=== PATIENT | male | born 2000 | race American Indian/Alaskan Native ===

== ENCOUNTER 2021-10-10 10:43 | Emergency (ER) | payer SELFPAY ==
[2021-10-10 11:46] VITALS: BP 121/62
--- NOTE | 2021-10-10 11:59 | Emergency Department Report ---
ED Male HPI - General Chief complaint: Urogenital-Male Stated complaint: LOW ABDOMINAL PAIN Time Seen by Provider: 10/10/21 11:50 Source: patient Mode of arrival: Ambulatory Limitations: No Limitations - History of Present Illness Initial comments: 20 y/o male presents to ER c/o 2 month history of penile discharge and girlfirend just informed him she was treated for chlamydia. MD Complaint: penile discharge -: month(s) Location: penis Radiation: none Severity: mild Quality: burning Consistency: constant Improves with: none Worsens with: urination discharge. denies: mass, rash, dysuria, fever, nausea/vomiting - Related Data Previous Rx's Medication Instructions Recorded Last Taken Type Azithromycin [Zithromax TAB] 1,000 mg PO ONCE #2 tablet 10/10/21 Unknown Rx Cefixime [Suprax] 400 mg PO ONCE #1 capsule 10/10/21 Unknown Rx metroNIDAZOLE [Flagyl] 2,000 mg PO ONCE #4 tablet 10/10/21 Unknown Rx Allergies Allergy/AdvReac Type Severity Reaction Status Date / Time No Known Allergies Allergy Unverified 01/14/14 17:34 ED Review of Systems ROS: Stated complaint: LOW ABDOMINAL PAIN Other details as noted in HPI Comment: All other systems reviewed and negative ED Past Medical Hx - Past Medical History Previous Medical History?: No - Surgical History Past Surgical History?: No - Social History Smoking Status: Never Smoker - Medications Home Medications: Home Medications Medication Instructions Recorded Confirmed Last Taken Type Azithromycin [Zithromax TAB] 1,000 mg PO ONCE #2 tablet 10/10/21 Unknown Rx Cefixime [Suprax] 400 mg PO ONCE #1 capsule 10/10/21 Unknown Rx metroNIDAZOLE [Flagyl] 2,000 mg PO ONCE #4 tablet 10/10/21 Unknown Rx ED Physical Exam - General Limitations: No Limitations General appearance: alert, in no apparent distress - Head Head exam: Present: atraumatic, normocephalic - Eye Eye exam: Present: normal appearance - ENT ENT exam: Present: normal exam, normal orophraynx, mucous membranes moist, TM's normal bilaterally - Neck Neck exam: Present: normal inspection, full ROM - Respiratory Respiratory exam: Present: normal lung sounds bilaterally. Absent: respiratory distress, rales, rhonchi - Cardiovascular Cardiovascular Exam: Present: regular rate, normal rhythm. Absent: systolic murmur, diastolic murmur, rubs, gallop - GI/Abdominal GI/Abdominal exam: Present: soft, normal bowel sounds - Rectal Rectal exam: Present: deferred - Extremities Exam Extremities exam: Present: normal inspection, normal capillary refill - Back Exam Back exam: Present: normal inspection. Absent: CVA tenderness (R), CVA tenderness (L) - Neurological Exam Neurological exam: Present: alert, oriented X3, CN II-XII intact, normal gait - Psychiatric Psychiatric exam: Present: normal affect, normal mood - Skin Skin exam: Present: warm, dry, intact, normal color. Absent: rash ED Course Vital Signs 10/10/21 11:43 Temperature 98.4 F Pulse Rate 68 Respiratory 18 Rate Blood Pressure 121/62 [Left] O2 Sat by Pulse 98 Oximetry Critical care attestation.: If time is entered above; I have spent that time in minutes in the direct care o f this critically ill patient, excluding procedure time. ED Disposition Clinical Impression: Possible exposure to STD, Penile discharge, without blood Disposition: HOME / SELF CARE / HOMELESS Is pt being admited?: No Does the pt Need Aspirin: No Condition: Stable Instructions: Gonorrhea Test, Safe Sex, Trichomoniasis, Urethritis, Adult Referrals: [facility] Depart [Outside] - 3-5 Days
[2021-10-10 14:03] LABS: Bilirubin,Urine NEG (Negative); Blood,Urine NEG (Negative); Color,Urine Yellow (Yellow)
[2021-10-10 14:07] LABS: Mucus,Urine 3+ /HPF
== END 2021-10-10 12:20 | disposition home or self-care (01) ==
LOC: ED 10:43
DX: R36.9 Urethral discharge, unspecified (principal); Z20.2 Contact with and (suspected) exposure to infections with a predominantly sexual mode of transmission; Z79.899 Other long term (current) drug therapy
CPT/HCPCS: 81001; 87086; 99283